=== PATIENT | male | born 1980 | race Caucasian/White ===

== ENCOUNTER → 2017-09-02 | Outpatient (CLI) | payer MEDICARE ==
[2017-09-02 14:42] LABS: CHCM 31.5; HCT 43.2 % (39.0-53.0); HDW 2.96; HGB 13.4 gm/dL (13.0-17.5); Hypochromasia Slight; MCH 28.7 pg (25.0-35.0); MCHC 31.1 g/dL (31.0-37.0); MCV 92.2 fL (80.0-100.0); Mean Platelet Volume 7.1; RBC 4.69 m/uL (4.30-5.90); RDW 13.1 % (11.5-15.5); WBC 8.7 k/uL (3.8-10.6)
[2017-09-02 14:54] LABS: ALT 126 U/L (21-72); AST 62 U/L (17-59); Alkaline Phosphatase 362 U/L (38-126); Anion Gap 8 mmol/L; Bilirubin, Delta 0.5 mg/dL (0.0-0.2); Blood Urea Nitrogen 17 mg/dL (9-20); Carbon Dioxide 31 mmol/L (22-30); Chloride 103 mmol/L (98-107); Glucose 82 mg/dL (74-99); Non-African American GFR(MDRD) >60 (>60 ml/min/1.73 sqM); Potassium 3.8 mmol/L (3.5-5.1); Sodium 142 mmol/L (137-145); Total Bilirubin 0.6 mg/dL (0.2-1.3); Total Protein 6.9 g/dL (6.3-8.2)
== END | disposition home or self-care (01) ==
LOC: LABWHC1 14:24
PROVIDERS: ATTEND Surgery
DX: K83.9 Disease of biliary tract, unspecified (principal)
CPT/HCPCS: 36415; 80048; 80076; 85027

== ENCOUNTER → 2017-09-09 | Outpatient (CLI) | payer MEDICARE ==
[2017-09-09 13:58] LABS: CH 28.6; CHCM 31.2; HCT 43.3 % (39.0-53.0); HDW 2.61; HGB 13.2 gm/dL (13.0-17.5); Hypochromasia Slight; MCH 28.2 pg (25.0-35.0); MCHC 30.6 g/dL (31.0-37.0); MCV 92.2 fL (80.0-100.0); Mean Platelet Volume 6.6; RDW 12.9 % (11.5-15.5); WBC 6.6 k/uL (3.8-10.6)
[2017-09-09 14:12] LABS: ALT 92 U/L (21-72); AST 42 U/L (17-59); Alkaline Phosphatase 282 U/L (38-126); Anion Gap 7 mmol/L; Blood Urea Nitrogen 22 mg/dL (9-20); Calcium 9.2 mg/dL (8.4-10.2); Carbon Dioxide 31 mmol/L (22-30); Chloride 101 mmol/L (98-107); Glucose 92 mg/dL (74-99); Non-African American GFR(MDRD) >60 (>60 ml/min/1.73 sqM); Potassium 4.6 mmol/L (3.5-5.1); Sodium 139 mmol/L (137-145); Total Bilirubin 0.4 mg/dL (0.2-1.3); Total Protein 7.1 g/dL (6.3-8.2)
== END | disposition home or self-care (01) ==
LOC: LABWHC1 13:01
PROVIDERS: ATTEND Surgery
DX: K83.9 Disease of biliary tract, unspecified (principal)
CPT/HCPCS: 36415; 80053; 85027

== ENCOUNTER → 2017-09-25 | Outpatient (CLI) | payer MEDICARE ==
[2017-09-25 13:15] LABS: CH 28.5; CHCM 32.1; HCT 46.5 % (39.0-53.0); HDW 2.42; HGB 14.7 gm/dL (13.0-17.5); MCH 28.2 pg (25.0-35.0); MCHC 31.5 g/dL (31.0-37.0); MCV 89.3 fL (80.0-100.0); RBC 5.21 m/uL (4.30-5.90); RDW 14.2 % (11.5-15.5); WBC 6.7 k/uL (3.8-10.6)
[2017-09-25 13:35] LABS: ALT 40 U/L (21-72); AST 25 U/L (17-59); Alkaline Phosphatase 169 U/L (38-126); Anion Gap 12 mmol/L; Bilirubin, Delta 0.2 mg/dL (0.0-0.2); Blood Urea Nitrogen 22 mg/dL (9-20); Calcium 9.7 mg/dL (8.4-10.2); Carbon Dioxide 28 mmol/L (22-30); Chloride 103 mmol/L (98-107); Glucose 115 mg/dL (74-99); Non-African American GFR(MDRD) >60 (>60 ml/min/1.73 sqM); Potassium 4.2 mmol/L (3.5-5.1); Sodium 143 mmol/L (137-145); Total Bilirubin 0.4 mg/dL (0.2-1.3); Total Protein 7.7 g/dL (6.3-8.2)
== END | disposition home or self-care (01) ==
LOC: LABWHC1 12:45
PROVIDERS: ATTEND Surgery
DX: K83.9 Disease of biliary tract, unspecified (principal)
CPT/HCPCS: 36415; 80048; 80076; 85027

== ENCOUNTER → 2018-07-20 | Outpatient (CLI) | payer MEDICARE ==
[2018-07-20 09:55] LABS: Basophils % (A) 1 %; Eosinophils # (A) 0.2 k/uL (0-0.7); Eosinophils % (A) 4 %; HCT 45.5 % (39.0-53.0); Lymphocytes # (A) 1.6 k/uL (1.0-4.8); Lymphocytes % (A) 27 %; MCH 28.5 pg (25.0-35.0); MCV 86.3 fL (80.0-100.0); Mean Platelet Volume 6.8; Monocytes # (A) 0.5 k/uL (0-1.0); Monocytes % (A) 9 %; Neutrophils # (A) 3.4 k/uL (1.3-7.7); Neutrophils % (A) 57 %; Platelet Count 148 k/uL (150-450); RBC 5.27 m/uL (4.30-5.90); RDW 14.9 % (11.5-15.5)
[2018-07-20 10:16] LABS: Albumin 3.9 g/dL (3.5-5.0); Calcium 8.9 mg/dL (8.4-10.2); Potassium 4.5 mmol/L (3.5-5.1); Total Bilirubin 0.6 mg/dL (0.2-1.3); Total Protein 6.9 g/dL (6.3-8.2)
[2018-07-20 10:27] LABS: T4, Free (Free Thyroxine) 1.27 ng/dL (0.78-2.19)
== END ==
LOC: LABWHC1 08:16
PROVIDERS: ATTEND Internal Medicine
DX: Z00.00 Encounter for general adult medical examination without abnormal findings (principal); C41.9 Malignant neoplasm of bone and articular cartilage, unspecified; J18.9 Pneumonia, unspecified organism; K83.3 Fistula of bile duct; F34.1 Dysthymic disorder; E78.5 Hyperlipidemia, unspecified
CPT/HCPCS: 36415; 80053; 80061; 84439; 84443; 85025

== ENCOUNTER → 2020-05-09 | Outpatient (CLI) | payer MEDICARE ==
[2020-05-09 10:22] LABS: Basophils % (A) 1 %; Eosinophils # (A) 0.3 k/uL (0-0.7); Eosinophils % (A) 4 %; HCT 48.1 % (39.0-53.0); HGB 15.2 gm/dL (13.0-17.5); Lymphocytes # (A) 1.4 k/uL (1.0-4.8); Lymphocytes % (A) 23 %; MCH 29.7 pg (25.0-35.0); MCHC 31.6 g/dL (31.0-37.0); MCV 93.8 fL (80.0-100.0); Monocytes # (A) 0.6 k/uL (0-1.0); Monocytes % (A) 9 %; Neutrophils # (A) 3.8 k/uL (1.3-7.7); Neutrophils % (A) 62 %; Platelet Count 164 k/uL (150-450); RBC 5.13 m/uL (4.30-5.90); RDW 12.4 % (11.5-15.5); WBC 6.2 k/uL (3.8-10.6)
[2020-05-09 20:52] LABS: T4, Free (Free Thyroxine) 1.4 ng/dL (0.80-1.80)
[2020-05-09 21:12] LABS: African American GFR (CKD) 85.9 (60.0-200.0); Albumin/Globulin Ratio 1.9 (1.60-3.17); Anion Gap 6.8 mmol/L (4.00-12.00); BUN/Creat Ratio 19.17 Ratio (12.00-20.00); Carbon Dioxide 30.2 mmol/L (21.6-31.8); Chol/HDL Ratio 3.16; Globulin 2.1 g/dL (1.6-3.3); LDL Cholesterol,Calculated 81.4 mg/dL (0.0-131.0); Non-African American GFR(CKD) 74.1 (60.0-200.0); Potassium 4.4 mmol/L (3.5-5.5); Total Bilirubin 0.3 mg/dL (0.3-1.2); Total Protein 6.1 g/dL (6.2-8.2); VLDL Calculation 15.6 mg/dL (5.00-40.00)
== END | disposition home or self-care (01) ==
LOC: LABWHC1 08:31
PROVIDERS: ATTEND Internal Medicine
DX: Z00.00 Encounter for general adult medical examination without abnormal findings (principal); E78.5 Hyperlipidemia, unspecified
CPT/HCPCS: 36415; 80053; 80061; 84439; 84443; 85025

== ENCOUNTER → 2020-05-23 | Outpatient (CLI) | payer MEDICARE ==
--- NOTE | 2020-05-23 14:54 | US ---
EXAMINATION TYPE: US liver DATE OF EXAM: 05/23/2020 COMPARISON: NONE CLINICAL HISTORY: R94.5 Abnormal liver function test. 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 Gallbladder surgi jun absent. Difficult and limited exam due to overlying bowel gas EXAM MEASUREMENTS: Liver Length: 15.0 cm Gallbladder Wall: Surgically absent cm CBD: 0.4 cm Right Kidney: 8.5 x 4.7 x 4.7 cm Pancreas: Obscured by bowel gas, visualized portions appear wnl. Liver: Heterogeneous. No suspicious postsurgical changes evident. Gallbladder: Surgically absent Evidence for sonographic Alexander's sign: no CBD: wnl as visualized Right Kidney: No hydronephrosis or masses seen. Measuring small IMPRESSION: 1. Abdomen ultrasound is unremarkable.
== END | disposition home or self-care (01) ==
LOC: RADUSWWP 09:18
PROVIDERS: ATTEND Internal Medicine
DX: R94.5 Abnormal results of liver function studies (principal)
CPT/HCPCS: 76705

== ENCOUNTER → 2020-06-19 | Outpatient (CLI) | payer MEDICARE ==
[2020-06-19 19:06] LABS: ALT 24 U/L (10-49); AST 23 U/L (14-35); Albumin/Globulin Ratio 1.71 (1.60-3.17); Alkaline Phosphatase 84 U/L (41-126); Bilirubin, Conjugated <0.20 mg/dL (0.20-0.40); Globulin 2.4 g/dL (1.6-3.3); Total Bilirubin 0.5 mg/dL (0.2-1.2); Total Protein 6.5 g/dL (6.2-8.2)
[2020-06-19 19:52] LABS: Hepatitis A Antibody IgM Non-Reactive (Non-Reactive); Hepatitis B Core IgM Non-Reactive (Non-Reactive); Hepatitis B Surface Antigen Non-Reactive (Non-Reactive); Hepatitis C IgG Antibody Non-Reactive (Non-Reactive)
== END | disposition home or self-care (01) ==
LOC: LABWHC1 11:03
PROVIDERS: ATTEND Nurse Practitioner
DX: R94.5 Abnormal results of liver function studies (principal)
CPT/HCPCS: 36415; 80074; 80076

== ENCOUNTER → 2021-07-24 | Outpatient (CLI) | payer MEDICARE ==
--- NOTE | 2021-07-24 08:16 | US ---
EXAMINATION TYPE: US liver DATE OF EXAM: 07/24/2021 COMPARISON: NONE CLINICAL HISTORY: R74.01 TRANSAMINITIS. elevated liver enzymes. history of Ewings sarcoma in the s . Patient states a portion of liver surgically absent. EXAM MEASUREMENTS: Liver Length: 15.1 cm Gallbladder Wall: Surgically absent CBD: 0.5 cm Right Kidney: 8.6 x 5.0 x 5.1 cm Technical limitations due to large amount of overlying bowel content Pancreas: Tail obscured by overlying bowel gas Liver: heterogenous Gallbladder: Surgically absent Evidence for sonographic Alexander's sign: no CBD: wnl as visualized Right Kidney: atrophic, no evidence of hydronephrosis IMPRESSION: Possible fatty liver. Atrophic changes of the right kidney.
== END | disposition home or self-care (01) ==
LOC: RADUSWWP 07:36
PROVIDERS: ATTEND Internal Medicine Hematology
DX: N26.1 Atrophy of kidney (terminal) (principal)
CPT/HCPCS: 76705

== ENCOUNTER → 2021-07-25 | Outpatient (CLI) | payer MEDICARE ==
[2021-07-25 18:31] LABS: INR 0.94 (0.90-1.11); Prothrombin Time 10.3 sec (9.9-11.9)
== END | disposition home or self-care (01) ==
LOC: LABWHC1 12:23
PROVIDERS: ATTEND Internal Medicine Hematology
DX: R74.01 Elevation of levels of liver transaminase levels (principal)
CPT/HCPCS: 36415; 80074; 82977; 85610; 86038; 86644; 86645; 86664

== ENCOUNTER → 2021-08-12 | Outpatient (CLI) | payer MEDICARE ==
[2021-08-12 15:40] LABS: Basophils # (A) 0.04 X 10*3/uL (0.00-0.10); Basophils % (A) 0.6 %; Eosinophils # (A) 0.24 X 10*3/uL (0.04-0.35); Eosinophils % (A) 3.7 %; HCT 46.5 % (39.6-50.0); HGB 14.8 g/dL (13.0-17.0); Lymphocytes # (A) 1.37 X 10*3/uL (0.90-5.00); Lymphocytes % (A) 21.1 %; MCH 31.5 pg (27.0-32.0); MCHC 31.8 g/dL (32.0-37.0); MCV 98.9 fL (80.0-97.0); Mean Platelet Volume 10.4 fL (9.5-12.2); Monocytes # (A) 0.73 X 10*3/uL (0.20-1.00); Monocytes % (A) 11.2 %; Neutrophils # (A) 4.07 X 10*3/uL (1.80-7.70); Neutrophils % (A) 62.8 %; Platelet Count 193 X 10*3/uL (140-440); RDW 12.5 % (11.5-14.5); WBC 6.49 X 10*3/uL (4.50-10.00)
[2021-08-12 17:54] LABS: African American GFR (CKD) 100.3 (60.0-200.0); Albumin/Globulin Ratio 1.71 (1.60-3.17); Anion Gap 11.9 mmol/L (4.00-12.00); BUN/Creat Ratio 18.76 Ratio (12.00-20.00); Blood Urea Nitrogen 19.7 mg/dL (9.0-27.0); Calcium 9.2 mg/dL (8.7-10.3); Carbon Dioxide 26.9 mmol/L (21.6-31.8); Chol/HDL Ratio 2.76 Ratio; Globulin 2.3 g/dL (1.6-3.3); HDL Cholesterol 78.6 mg/dL (40.00-60.00); LDL Cholesterol,Calculated 124.4 mg/dL (0.0-131.0); Non-African American GFR(CKD) 86.5 (60.0-200.0); Potassium 4.3 mmol/L (3.5-5.5); T4, Free (Free Thyroxine) 1.14 ng/dL (0.800-1.800); Total Bilirubin 0.6 mg/dL (0.30-1.20); Total Protein 6.3 g/dL (6.2-8.2); Triglycerides 70.2 mg/dL (0.00-149.00); VLDL Calculation 14.04 mg/dL (5.00-40.00)
== END | disposition home or self-care (01) ==
LOC: LABWHC1 10:24
PROVIDERS: ATTEND Internal Medicine
DX: Z00.00 Encounter for general adult medical examination without abnormal findings (principal)
CPT/HCPCS: 36415; 80053; 80061; 84439; 84443; 85025

== ENCOUNTER → 2021-09-20 | Outpatient (CLI) | payer MEDICARE ==
[2021-09-20 20:49] LABS: Albumin 4.2 g/dL (3.8-4.9); Albumin/Globulin Ratio 1.6 (1.60-3.17); Bilirubin, Conjugated 0.53 mg/dL (0.20-0.40); Bilirubin,Unconjugated 0.25 mg/dL (0.20-1.00); Globulin 2.6 g/dL (1.6-3.3); Total Bilirubin 0.8 mg/dL (0.30-1.20); Total Protein 6.8 g/dL (6.2-8.2)
== END | disposition home or self-care (01) ==
LOC: LABWHC1 14:09
DX: K71.9 Toxic liver disease, unspecified (principal)
CPT/HCPCS: 36415; 80076

== ENCOUNTER → 2021-11-07 | Outpatient (CLI) | payer MEDICARE ==
[2021-11-07 16:06] LABS: ALT 34 U/L (10-49); AST 22 U/L (14-35); Albumin 4.3 g/dL (3.8-4.9); Albumin/Globulin Ratio 1.72 (1.60-3.17); Alkaline Phosphatase 199 U/L (41-126); Bilirubin, Conjugated <0.20 mg/dL (0.20-0.40); Globulin 2.5 g/dL (1.6-3.3); Total Protein 6.7 g/dL (6.2-8.2)
== END | disposition home or self-care (01) ==
LOC: LABWHC1 09:14
PROVIDERS: ATTEND Internal Medicine Gastroenterology
DX: K71.9 Toxic liver disease, unspecified (principal)
CPT/HCPCS: 36415; 80076